=== PATIENT | male | born 1960 | race Caucasian/White ===

== ENCOUNTER → 2020-05-16 | Outpatient (CLI) | payer OTHER ==
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
== END ==
LOC: DXRAD 09:48
PROVIDERS: ATTEND Physician Assistant
DX: M25.511 Pain in right shoulder (principal); M89.38 Hypertrophy of bone, other site
CPT/HCPCS: 73030

== ENCOUNTER → 2020-05-25 | Outpatient (CLI) | payer OTHER ==
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
== END ==
LOC: CT 09:51
PROVIDERS: ATTEND Nurse Practitioner Adult Health
DX: J43.2 Centrilobular emphysema (principal); M95.4 Acquired deformity of chest and rib; I25.10 Atherosclerotic heart disease of native coronary artery without angina pectoris
CPT/HCPCS: 71250